=== PATIENT | male | born 1955 | race Two or more races ===

== ENCOUNTER 2017-02-13 00:45 | Emergency (ER) | payer OTHER ==
[2017-02-13 02:15] VITALS: BP 148/93
== END 2017-02-13 02:15 | disposition home or self-care (01) ==
LOC: ED 00:45
DX: K12.2 Cellulitis and abscess of mouth (principal); R05 Cough

== ENCOUNTER 2017-10-12 17:15 | Emergency (ER) | payer SELFPAY ==
[~2017-10-12] VITALS: Ht 162.6 cm; Wt 90.7 kg
[2017-10-12 17:45] VITALS: Ht 162.6 cm; Wt 90.7 kg
[2017-10-12 21:42] VITALS: BP 140/86
== END 2017-10-12 21:42 | disposition home or self-care (01) ==
LOC: ED 17:15
DX: J20.9 Acute bronchitis, unspecified (principal); I10 Essential (primary) hypertension
CPT/HCPCS: J1100

== ENCOUNTER 2018-01-19 06:12 | Emergency (ER) | payer OTHER ==
[~2018-01-19] VITALS: Ht 162.6 cm; Wt 93.4 kg
[2018-01-19 06:30] VITALS: BP 156/88
== END 2018-01-19 06:55 | disposition home or self-care (01) ==
LOC: ED 06:12
DX: K12.2 Cellulitis and abscess of mouth (principal); I10 Essential (primary) hypertension

== ENCOUNTER 2018-06-30 00:36 | Emergency (ER) | payer OTHER ==
[~2018-06-30] VITALS: Ht 165.1 cm; Wt 94.0 kg
[2018-06-30 01:57] VITALS: BP 170/94
== END 2018-06-30 01:57 | disposition home or self-care (01) ==
LOC: ED 00:36
DX: J32.9 Chronic sinusitis, unspecified (principal); J04.0 Acute laryngitis; G47.30 Sleep apnea, unspecified; I10 Essential (primary) hypertension
CPT/HCPCS: J7512

== ENCOUNTER 2018-07-12 18:27 | Emergency (ER) | payer OTHER ==
[2018-07-12 18:41] VITALS: Ht 165.1 cm
[2018-07-12 22:12] VITALS: BP 137/73
== END 2018-07-12 22:12 | disposition home or self-care (01) ==
LOC: ED 18:27
DX: J02.9 Acute pharyngitis, unspecified (principal); F41.9 Anxiety disorder, unspecified; I10 Essential (primary) hypertension
CPT/HCPCS: J1885

== ENCOUNTER 2018-10-04 00:24 | Emergency (ER) | payer OTHER ==
[~2018-10-04] VITALS: Ht 162.6 cm; Wt 90.7 kg
[2018-10-04 00:29] VITALS: Ht 162.6 cm; Wt 90.7 kg
[2018-10-04 01:05] LABS: BASOPHIL % 0.6 % (0-2); PLATELET COUNT 220 x10^3mcL (130-400); RED CELL DISTRIBUTION WIDTH 12.9 % (11.5-14.5)
[2018-10-04 01:16] LABS: CALCIUM 8.6 mg/dL (8.5-10.1); CARBON DIOXIDE 26.8 mmol/L (21-32); CHLORIDE SERUM 106 mmol/L (98-107); CREATININE SERUM 0.8 mg/dL (0.7-1.3); GFR1 > 60 mL/min; GLUCOSE SERUM 107 mg/dL (74-106); POTASSIUM SERUM 3.8 mmol/L (3.5-5.1); SODIUM SERUM 143 mmol/L (136-145)
[2018-10-04 01:21] LABS: ALBUMIN 3.7 g/dL (3.4-5.0); ALKALINE PHOSPHATASE 88 U/L (46-116); ALT/SGPT 23 U/L (16-63); AST/SGOT 19 U/L (15-37); BILIRUBIN TOTAL 0.55 mg/dL (0.20-1.00)
[2018-10-04 02:21] VITALS: BP 123/71
== END 2018-10-04 02:21 | disposition home or self-care (01) ==
LOC: ED 00:24
PROVIDERS: Emergency Medicine
DX: F41.9 Anxiety disorder, unspecified (principal); R07.89 Other chest pain; I10 Essential (primary) hypertension
CPT/HCPCS: 36415; 83880; Q0092

== ENCOUNTER 2019-02-20 04:56 | Emergency (ER) | payer OTHER ==
[~2019-02-20] VITALS: Ht 165.1 cm; Wt 88.9 kg
[2019-02-20 07:17] LABS: BASOPHIL % 1.6 % (0-2); PLATELET COUNT 201 x10^3mcL (130-400); RED CELL DISTRIBUTION WIDTH 12.9 % (11.5-14.5)
[2019-02-20 07:36] LABS: CALCIUM 8.8 mg/dL (8.5-10.1); CARBON DIOXIDE 24.4 mmol/L (21-32); CHLORIDE SERUM 110 mmol/L (98-107); CREATININE SERUM 0.6 mg/dL (0.7-1.3); GFR1 > 60 mL/min; GLUCOSE SERUM 118 mg/dL (74-106); POTASSIUM SERUM 4.1 mmol/L (3.5-5.1); SODIUM SERUM 144 mmol/L (136-145)
[2019-02-20 07:40] LABS: ALBUMIN 3.4 g/dL (3.4-5.0); ALKALINE PHOSPHATASE 87 U/L (46-116); ALT/SGPT 23 U/L (16-63); AST/SGOT 12 U/L (15-37); BILIRUBIN TOTAL 0.44 mg/dL (0.20-1.00); MAGNESIUM 2.2 mg/dL (1.8-2.4); TOTAL PROTEIN, SERUM 6.9 g/dL (6.4-8.2)
[2019-02-20 08:29] VITALS: BP 133/74
== END 2019-02-20 08:29 | disposition home or self-care (01) ==
LOC: ED 04:56
PROVIDERS: Emergency Medicine
DX: J30.9 Allergic rhinitis, unspecified (principal); R00.2 Palpitations; I10 Essential (primary) hypertension
CPT/HCPCS: 36415; Q0092